=== PATIENT | male | born 1955 | race Caucasian/White ===

== ENCOUNTER 2021-10-30 07:00 | Outpatient (CLI) | payer MEDICARE, OTHER, SELFPAY ==
--- NOTE | ~2021-10-30 | NM_ITS ---
EXAMINATION: NM bone scan whole body DATE: 10/30/2021 12:24 INDICATION: Prostate cancer TECHNIQUE: 27.2 mCi Tc-99m HDP was administered intravenously. Delayed whole-body scintigrams were o btained. COMPARISON: 07/27/[address] dated 10/30/2021 FINDINGS: Typical pattern of mild joint centered uptake at the bilateral acromioclavicular and sternoclavicular joints, the sternomanubrial articulation, bilateral knees risks and right foot. There is also a corina lar pattern of mild uptake associated with costochondral cartilage. No other suspicious foci of abnor mal bone uptake to suggest metastatic disease. Mild uptake at the right side of L1-L2 with correspond ing Modic type III degenerative endplate changes on CT. IMPRESSION: 1. No findings to suggest metastatic disease. Reviewed, dictated and finalized at location A.
--- NOTE | ~2021-10-30 | CT_ITS ---
EXAMINATION: CT abdomen pelvis w con DATE: 10/30/2021 08:10 INDICATION: Prostate cancer TECHNIQUE: Computed tomography (CT) of the abdomen and pelvis was performed with 100 CC Omnipaque 300 intravenous contrast. Automated exposure control and iterative reconstruction technique were employe d. Exam dose: 1420.52 mGy-cm total exam DLP. COMPARISON: July 27, 2012 CT abdomen pelvis FINDINGS: The lung bases are clear. Normal heart size. No pericardial or pleural effusion. Diffuse hepatic steatosis. No hepatic, splenic, pancreatic, and adrenal space-occupying mass lesion. 9 Millimeters right renal cyst. No urinary tract calculus or hydroureteronephrosis. Normal caliber and atherosclerotic calcification of the abdominal aorta. No intraperitoneal or retrop eritoneal or pelvic mass lesion or adenopathy or ascites. Scattered left and right colonic diverticula; no CT evidence of diverticulitis. No bowel obstruction, bowel wall thickening, pneumatosis or intraperitoneal free air. Normal appendix. Status post prostatectomy. The urinary bladder is unremarkable. Bilateral vas deferens calcifications, which is usually associated with diabetes. Degenerative changes of the spine including prominent degenerative spurring of the thoracic spine and severe degenerative disc disease at L1-2 and L2-3. Bilateral hip osteoarthritis. Small fat-containing umbilical hernia. IMPRESSION: Status post prostatectomy for prostate cancer; no abdominal or pelvic or skeletal metast atic disease or lymphadenopathy is detected Hepatic steatosis Right renal cyst Diverticulosis of colon; no evidence of diverticulitis Bilateral vas deferens calcifications, usually associated with diabetes Reviewed, dictated and finalized at Location A. Reviewed, dictated and finalized at location B. IMPRESSION: Status post prostatectomy for prostate cancer; no abdominal or pel rashel or skeletal metastatic disease or lymphadenopathy is detected Hepatic steatosis Right renal cyst Diverticulosis of colon; no evidence of diverticulitis Bilateral vas deferens calcifications, usually associated with diabetes
[2021-10-30 07:58] LABS: Estimated Glomerular Filt Rate 43
== END 2021-10-30 07:01 | disposition home or self-care (01) ==
PROVIDERS: Visit Provider Nurse Practitioner Adult Health
DX: C61 Malignant neoplasm of prostate (principal); K76.0 Fatty (change of) liver, not elsewhere classified; N28.1 Cyst of kidney, acquired; K57.30 Diverticulosis of large intestine without perforation or abscess without bleeding
CPT/HCPCS: 74177; 78306; A9561; Q9967

== ENCOUNTER 2021-11-28 13:30 | Outpatient (CLI) | payer MEDICARE, OTHER, SELFPAY ==
--- NOTE | ~2021-11-28 | PE_ITS ---
EXAMINATION: PET_PETPSMAST_PT DATE: 11/28/2021 16:06 INDICATION: Prostate cancer TECHNIQUE: 8.838 mCi of pipflufolastat F-18 (18-F-DCFPyL) was administered i.v. Low dose computed la ography (CT) images were acquired from the base of the brain to the proximal thighs for attenuation c orrection and anatomic localization. Positron emission tomography (PET) images were acquired in the s glynn distribution beginning 72 minutes after injection. The dose-length product (DLP) was 75.50 mGy-cm . Incorrect technique was selected for the attenuation correction CT which renders that portion of th e examination essentially uninterpretable. COMPARISON: CT, 10/30/2021 FINDINGS: Head/neck: No abnormal FDG uptake is identified. There is symmetric uptake in the lacrimal gland and parotid glands. Chest: No abnormal FDG uptake is identified. There is mild dependent atelectasis. The heart size is n ormal. No pathologically enlarged thoracic lymph nodes are identified. Abdomen/pelvis/proximal thighs: Physiologic FDG activity is present in the bowel and urinary tract. N o abnormal FDG uptake is identified. The liver, spleen, pancreas, gallbladder, adrenal glands, and ki dneys are normal. No pathologically enlarged abdominal or pelvic lymph nodes are identified. There is no free intraperitoneal gas or evidence of bowel obstruction. Musculoskeletal: No abnormal FDG uptake is identified. There is moderate lumbar spondylosis. 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 IMPRESSION: 1. No evidence of recurrent or metastatic disease. Reviewed, dictated and finalized at location A.
== END 2021-11-28 13:31 | disposition home or self-care (01) ==
PROVIDERS: Visit Provider Urology
DX: C61 Malignant neoplasm of prostate (principal)
CPT/HCPCS: 78815; A9595

== ENCOUNTER 2024-11-08 00:28 | Day surgery (SDC) | payer MEDICARE, SELFPAY ==
[2024-11-01 09:42] VITALS: BMI 36.5
--- OUTSIDE RECORDS SUMMARY | 2024-11-08 00:31 | XMS_ITS | Encounter Summary ---
Author Name [facility] [place] [facility] [place] Address [address] [place] [address] Care Team Providers Care Threat Monitoring Analyst Name Role Phone SANGEETA SANDERS Primary Care Provider Unavailab le Insurance Providers: All historical and current Section Date Range: From patient's date of to the date document was created. This section includes the names of all active insurance providers for the patient. Insurance Provider Type of Coverage Plan Name Start of Policy Coverage End of Policy Coverage Group Number Member ID Insurance Provider's Telephone Number Policy Lyon's Name Patient's Relationship to Policy Lyon [employer] SENIOR SUPPLEMENT MEDICARE SUPPLEMEN DIVINE MED[employer] ARE SUPPL EMENT May 21, 2022 PLAN F [id number] UVALDO SANCHEZ PATIENT MEDICARE (WNR) MEDICARE (M) PART A Apr 21, 2019 PART A [id number] WILFRID SANCHEZ JR PATIENT MEDICARE (WNR) MEDICARE (M) PART B Apr 21, 2019 PART B [id number] WILFRID SANCHEZ JR PATIENT Selected Encounter This section includes the information on record at [place] for the Encounter. Date/Time Encounter Type Encounter Description Reason Provider Source November 07, 2024 09:13 AM POS AIRWAY PRESSURE CPAP SLEEP MEDICINE ICD-10-CM G47.33 Obstructive sleep apnea (adult) (pediatric) HEATHER CHAVES MD E Encounter Template Text not used by [place] Assessments - Encounter Diagnoses This section includes the primary and secondary diagnoses documented for the Encounter. Date/Time Primary/Secondary Diagnosis Diagnosis Name Provider Source November 07, 2024 09:14 AM PRIMARY Obstructive sleep apnea (adult) (pediatric) THIERRY RICHARDSON [facility] Plan of Treatment: Future Appointments (+ 6 months) and Future Tests (+/- 45 days) The Plan of Treatment section includes future care activities for the patient from all [place] treatmentfacilities. This section includes future appointments and future orders which are active, pending or scheduled. Future Appointments This section includes appointments that were scheduled to occur 6 months from the date of the Encounter, up to a maximum of 20 appointments. The data comes from all [place] treatment facilities. Appointment Date/Time Appointment Type Appointme nt Facility Name Nov 21, 2024 01:30 PM AMBULATORY - SURGERY [facility] Mar 02, 2025 03:30 PM AMBULATORY - MEDICINE [facility] Social History: Smoking Status (Most current) and Tobacco Use (All prior to encounter date) This section includes the most current, and the historical, smoking and tobacco- related health factors from the [place] facility where the Encounter took place. Current Smoking Status This section includes the most current smoking, or tobacco-related health factor, from the [place] facility where the Encounter took place. Date/Time Current Smoking Status Comment Facil ity Oct 04, 2023 01:49 PM VA-TOBACCO NEVER USED [facility] Encounter Notes: All associated encounter notes This section contains the clinical notes associated to the Encounter. Date/Time Encounter Note(s) Provider Source November 07, 2024 09:13 AM SLEEP MEDICINE NOT E: LOCAL TITLE: POSITIVE AIRWAY PRESSURE NOTE [facility] STANDARD TITLE: SLEEP MEDICINE NOTE DATE OF NOTE: NOVEMBER 07, 2024@09:13 ENTRY DATE: NOVEMBER 07, 2024@09:13:48 AUTHOR: THIERRY RICHARDSON EXP COSIGNER: URGENCY: STATUS: COMPLETED Moderate MACK from [facility] sleep report. A11 and supplies ordered through [employer] and will be shipped to patient's home. [id number]. Cleaning and replacement sheet will be mailed out as well. Link Maxine/Lalo Miller /joana/ THIERRY RICHARDSON Respiratory Therapist Signed: 11/07/2024 09:14 THIERRY RICHARDSON [facility]
--- OUTSIDE RECORDS SUMMARY | 2024-11-08 00:31 | XMS_ITS | Encounter Summary ---
Author Name [facility] [place] [place] [facility] [place] Address [address] [place] [address] Care Team Providers Care Defense Analyst Name Role Phone SANGEETA SANDERS Primary [...] SUPPL EMENT May 21, 2022 PLAN F [id number] UVALDO SANCHEZ PATIENT MEDICARE (WNR) MEDICARE (M) PART A Apr 21, 2019 PART A [id number] WILFRID SANCHEZ JR PATIENT MEDICARE (WNR) MEDICARE (M) PART B Apr 21, 2019 PART B [id number] WILFRID SANCHEZ JR PATIENT Selected Encounter This section includes the information on record at [place] for the Encounter. Date/Time Encounter Type Encounter Description Reason Pro vider Source Sep 22, 2024 02:11 PM Outpatient Encounter GENERAL INTERNAL MEDICINE IHE Encounter Template Text not used by [place] Plan of Treatment: Future Appointments (+ 6 months) and Future Tests (+/- 45 days) The Plan of Treatment section includes future care activities for the patient from all [place] treatmentfacilities. This section includes future appointments and future orders which are active, pending or scheduled. Future Appointments This section includes appointments that were scheduled to occur 6 months from the date of the Encounter, up to a maximum of 20 appointments. The data comes from all [place] treatment facilities. Appointment Date/Time Appointment Type Appointme nt Facility Name Oct 16, 2024 03:00 PM [facility] Nov 21, 2024 01:30 PM AMBULATORY - SURGERY [facility] Mar 02, 2025 03:30 PM AMBULATORY - MEDICINE [facility] Social History: Smoking Status (Most current) and Tobacco Use (All prior to encounter date) This section includes the most current, and the historical, smoking and tobacco- related health factors from the [place] facility where the Encounter took place. Current Smoking Status This section includes the most current smoking, or tobacco-related health factor, from the [place] facility where the Encounter took place. Date/Time Current Smoking Status Comment Facil rickyy Oct 04, 2023 01:49 PM VA-TOBACCO NEVER USED [facility] Encounter Notes: All associated encounter notes This section contains the clinical notes associated to the Encounter. Date/Time Encounter Note(s) Provider Source Jul 10, 2024 02:11 PM SCANNED NOTE: LOCAL TITLE: NON VA CARE ST STANDARD TITLE: SCANNED NOTE DATE OF NOTE: JUL 10, 2024@14:11 ENTRY DATE: SEP 22, 2024@14:12:04 AUTHOR: CANDELARIA GOMEZ EXP COSIGNER: URGENCY: STATUS: COMPLETED Attached to this note is a scanned copy of [place] medical record consisting of the following document(s): Progress Note DOS: 07/10/24 From: PROGRESS NOTE - MEDICAL RECORDS To view the scanned document: 1) You must be logged into [facility] 2) Click on Toolbar 3) Sign on to Praneeth Lee /joana/ CANDELARIA GOMEZ Registered Nurse Signed: 09/22/2024 14:[address] [facility]
--- OUTSIDE RECORDS SUMMARY | 2024-11-08 00:31 | XMS_ITS | Encounter Summary ---
Author Name [facility] [place] [facility] [place] [facility] [place] Address [address] [place] [address] Care Team Providers Care Auditor Supervisor Name Role Phone SANGEETA SANDERS Primary Care [...] SUPPL EMENT May 21, 2022 PLAN F [id number] UVALDO SANCHEZ PATIENT MEDICARE (WNR) MEDICARE (M) PART A Apr 21, 2019 PART A [id number] WILFRID SANCHEZ JR PATIENT MEDICARE (WNR) MEDICARE (M) PART B Apr 21, 2019 PART B [id number] WILFRID SANCHEZ JR PATIENT Selected Encounter This section includes the information on record at [place] for the Encounter. Date/Time Encounter Type Encounter Description Reason Pro vider Source November 07, 2024 07:19 AM Outpatient Encounter COMMUNITY CARE CONSULT IHE Encounter Template Text not used by [facility] Plan of Treatment: Future Appointments (+ 6 months) and Future Tests (+/- 45 days) The Plan of Treatment section includes future care activities for the patient from all [place] treatmentfacilities. This section includes future appointments and future orders which are active, pending or scheduled. Future Appointments This section includes appointments that were scheduled to occur 6 months from the date of the Encounter, up to a maximum of 20 appointments. The data comes from all [place] treatment facilities. Appointment Date/Time Appointment Type Appointme nt Facility Name Nov 21, 2024 01:30 PM AMBULATORY - SURGERY [facility] Mar 02, 2025 03:30 PM AMBULATORY - MEDICINE [facility] Social History: Smoking Status (Most current) and Tobacco Use (All prior to encounter date) This section includes the most current, and the historical, smoking and tobacco- related health factors from the [place] facility where the Encounter took place. Current Smoking Status This section includes the most current smoking, or tobacco-related health factor, from the [place] facility where the Encounter took place. Date/Time Current Smoking Status Comment Facil ity Oct 04, 2023 01:49 PM VA-TOBACCO NEVER USED [facility] Encounter Notes: All associated encounter notes This section contains the clinical notes associated to the Encounter. Date/Time Encounter Note(s) Provider Source November 07, 2024 07:19 AM NONVA NOTE: LOCAL TITLE: [facility]-REQUEST FOR SERVICE NOTE [facility] STANDARD TITLE: NONVA NOTE DATE OF NOTE: NOVEMBER 07, 2024@07:19 ENTRY DATE: NOVEMBER 07, 2024@07:19:53 AUTHOR: MAYKEL CRUZ COSIGNER: URGENCY: STATUS: COMPLETED Request for Services (RFS) documentation has been sent for scanning to [facility] Community Care Consult: [facility] SLEEP STUDY Consult No: [id number] Date sent to scanning: October A Request for Service (RFS) form [id number] has been received which includes the following: Care Requested: CPAP Order: APAP 5cm to 20cm ResMed Airsense 10 or 11 Heated Hose Mask fitting, All Supplies, Modem only ICD-10 Dx code: G47.30 Date [facility] received request: October Date service required: October Requesting Community Provider Information: Name of Ordering Provider: [facility] [address] [place] [id number] Ref# [id number] /joana/ MAYKEL CRUZ REGISTERED NURSE Signed: 11/07/2024 07:30 Receipt Acknowledged By: 11/07/2024 11:49 /es/ SANGEETA SANDERS Staff Physician 11/07/2024 09:11 /es/ THIERRY RICHARDSON Respiratory Therapist MAYKEL CRUZ [facility]
--- OUTSIDE RECORDS SUMMARY | 2024-11-08 00:31 | XMS_ITS ---
Author Name [facility] Address [address] [place] [address] Care Team Providers Care Tower Erector Helper Name Role Phone ELEONORA SANDERS Primary Care Provider Unavailab le Insurance [...] SUPPL EMENT May 21, 2022 PLAN F [id number] UVALDO SANCHEZ PATIENT MEDICARE (WNR) MEDICARE (M) PART A Apr 21, 2019 PART A [id number] WILFRID SANCHEZ JR PATIENT MEDICARE (WNR) MEDICARE (M) PART B Apr 21, 2019 PART B [id number] WILFRID SANCHEZ JR PATIENT Selected Encounter This section includes the information on record at [place] for the Encounter. Date/Time Encounter Type Encounter Description Reason Provider Source Sep 01, 2024 02:30 PM OFFICE O/P EST MOD 30 MIN PRIMARY CARE/MEDICINE ICD-10-CM E11.9 Type 2 diabetes mellitus without complications GABRIELE SANDERS Encounter Template Text not used by [facility] Assessments - Encounter Diagnoses This section includes the primary and secondary diagnoses documented for the Encounter. Date/Time Primary/Secondary Diagnosis Diagnosis Name Provider Source Sep 01, 2024 02:59 PM PRIMARY Type 2 diabetes mellitus without complications KESHA SANDERS Ree FLY [facility] Sep 01, 2024 02:59 PM SECONDARY Carcinoma in situ of prostate TOMMYKESHA E [facility] Sep 01, 2024 02:59 PM SECONDARY Cervicalgia TOMMYKESHA E Ree [facility] Sep 01, 2024 02:59 PM SECONDARY Dysphagia, unspecified TOMMYKESHA José Miguel [facility] Sep 01, 2024 02:59 PM SECONDARY Essential (primary) hypertension TOMMYKESHA E Ree [facility] Sep 01, 2024 02:59 PM SECONDARY Hyperlipidemia, unspecified TOMMYKESHA E [facility] Sep 01, 2024 02:59 PM SECONDARY Hypothyroidism, unspecified TOMMYKESHA E [facility] Sep 01, 2024 02:59 PM SECONDARY Obstructive sleep apnea (adult) (pediatric) KAMARIBERTINKESHA E [facility] Plan of Treatment: Future Appointments (+ 6 months) and Future Tests (+/- 45 days) The Plan of Treatment section includes future care activities for the patient from all [place] treatmentfacilities. This section includes future appointments and future orders which are active, pending or scheduled. Future Appointments This section includes appointments that were scheduled to occur 6 months from the date of the Encounter, up to a maximum of 20 appointments. The data comes from all [place] treatment facilities. Appointment Date/Time Appointment Type Appointme nt Facility Name Oct 16, 2024 03:00 PM AMBULATORY - MEDICINE [facility] Nov 21, 2024 01:30 PM AMBULATORY - SURGERY [facility] Mar 02, 2025 03:30 PM AMBULATORY - MEDICINE [facility] Active, Pending, and Scheduled Orders This section includes a listing of several types of active, pending, and scheduled orders, including clinic medications orders, diagnostic test orders, procedure orders and consult orders; where the start date of the order is 45 days before the date of the Encounter or 45 days after the date of theEncounter. The data comes from all [place] treatment facilities. Test Date/Time Test Type Test Details Facility Name Jul 19, 2024 09:52 AM Consult Order [facility] SLEEP STUDY Cons Ginger [employer] [facility] Vital Signs: All taken on the encounter date This section contains inpatient and outpatient Vital Signs collected on the date of the Encounter. Date/Time Temperature Pulse Blood Pressure Respiratory Rate SP02 Pain Height Weight Body Mass Index Source Sep 01, 2024 02:13 PM 144/72 [facility] Sep 01, 2024 02:06 PM 97.9 78 152/91 18 96 7 71 265.4 37 [facility] Encounter Notes: All associated encounter notes This section contains the clinical notes associated to the Encounter. Date/Time Encounter Note(s) Provider Source October 26, 2024 12:56 PM ACCOUNTING OF DISC LOSURES NOTE: LOCAL TITLE: STATE PRESCRIPTION DRUG MONITORING PROGRAM STANDARD TITLE: ACCOUNTING OF DISCLOSURES NOTE DATE OF NOTE: OCTOBER 26, 2024@12:56:16 ENTRY DATE: OCTOBER 26, 2024@12:56:16 AUTHOR: ELEONORA SANDERS EXP COSIGNER: URGENCY: STATUS: COMPLETED This PDMP query was submitted by Eleonora Sanders. The clinical justification for this PDMP query is to review controlled substances prescribed outside of the [place], and any additional information that may become available, as an important component of standard clinical care, and in accordance with [facility] policy. Patient information was shared with the PDMP [employer]. Prescription(s) filled outside the [facility] in the last 90 days are noted. However, they do not raise significant safety concerns and do not influence the treatment plan at this time. /joana/ ELEONORA SANDERS Staff Physician Signed: 10/26/2024 12:58 ELEONORA SANDERS [facility] Sep 01, 2024 02:16 PM PRIMARY CARE NOTE: LOCAL TITLE: PRIMARY CARE PROVIDER ESTABLISHED VISIT [facility] STANDARD TITLE: PRIMARY CARE NOTE DATE OF NOTE: SEP 01, 2024@14:16 ENTRY DATE: SEP 01, 2024@14:16:34 AUTHOR: ELEONORA SANDERS EXP COSIGNER: URGENCY: STATUS: COMPLETED Patient is 69 and WHITE Self Identified Gender - Man Reason for visit:Scheduled follow-up Chief Complaint: 69yo male here for f/u visit, last visit Feb 2024. Non VA Providers: PCP: Dr. Alvin Avendano, [facility] Urology/Onc: Dr. Hartley [facility] GI: Colonoscopy scheduled October 2024 History of Present Illness: Hx of DM2, last A1c at 6.0%. Currently on sitagliptin 50mg daily, changed from tradjenta previously. --still needs to schedule an eye appt. --had repeat A1c on 07/10/2024 through nonVA PCP, at 6.2%. Reports he has been having issues with neck pain. He has brought in discs of his prior imaging of her cervical spine. He reports he has an upcoming repeat MRI scheduled for 09/06/2024. He has a hx of MACK, now has a home sleep study scheduled for September 2024. --has tried CPAP and did not tolerate this well. Reports he has had trouble swallowing for the last 6 months, worse when trying to use medicine and certain foods. --denies issues with acid reflux or heartburn. --feels like food gets stuck in his throat and he sometimes has to bring it back up. No prior issues with this. Problem List: 1) Type 2 diabetes mellitus 2) Essential hypertension 3) Hyperlipidemia 4) Carcinoma in situ of prostate 5) Sleep apnea 6) Gout 7) Hypothyroidism 8) Exposure to Potentially Hazardous Substance ([facility] [id number]) Social History: NICOTINE: Nicotine User: never ILLICIT DRUGS: none ETOH: 2-3 times/month 2-3 beers per episode MARITAL/DOMESTIC STATUS: Medication Review: The essential med list for review which includes the patient's active VA prescriptions and if applicable, remote VA prescriptions, non-VA prescriptions, and discontinued VA prescriptions within the last 90 days and known allergies including local and remote allergies have been reviewed. Allergies:Patient has answered NKA Active and Recently Outpatient Medications (excluding Supplies): Active Outpatient Medications Status 1) ACCU-CHEK GUIDE (GLUCOSE) TEST STRIP USE 1 STRIP FOR BLOOD ACTIVE TEST DIRECTED *HYPOGLYCEMIA, 100 STRIPS PER YEAR* Jan 2) ALLOPURINOL 300MG TAB TAKE ONE TABLET BY MOUTH ONCE A DAY ACTIVE TAKE WITH PLENTY OF WATER. Indication: FOR GOUT 3) DICLOFENAC NA 1% TOP GEL APPLY 4 GM TO AFFECTED AREA(S) FOUR ACTIVE TIMES A DAY NEEDED DO NOT EXCEED MORE THAN 16 GRAMS DAILY TO ANY LOWER EXTREMITY JOINT. NOT MORE THAN 8 GRAMS DAILY TO ANY UPPER EXTREMITY JOINT. MAX 32GM/DAY OVER ALL JOINTS. (MEASURE DOSE WITH RULER ATTACHED INSIDE BOX) Indication: FOR OSTEOARTHRITIS 4) ERGOCALCIF 1,250MCG (D2-50,000UNIT) CAP TAKE ONE CAPSULE BY ACTIVE MOUTH EVERY WEEK HIGH DOSE VITAMIN D Indication: FOR VITAMIN D DEFICIENCY 5) FENOFIBRATE 145MG TAB TAKE ONE TABLET BY MOUTH ONCE A DAY - ACTIVE (S) TAKE WITH FOOD Indication: FOR HIGH TRIGLYCERIDES 6) GABAPENTIN 100MG CAP TAKE ONE CAPSULE BY MOUTH AT BEDTIME ACTIVE Indication: FOR NERVE PAIN 7) LEVOTHYROXINE NA 125MCG TAB TAKE ONE TABLET BY MOUTH EVERY ACTIVE MORNING BEFORE A MEAL TAKE 30 MINUTES BEFORE FOOD. TAKE SEPARATELY FROM ALL OTHER MEDICATIONS. NOTE DOSE DECREASE Indication: FOR HYPOTHYROIDISM 8) LISINOPRIL 10MG TAB TAKE ONE TABLET BY MOUTH ONCE A DAY ACTIVE Indication: FOR HIGH BLOOD PRESSURE 9) SIMVASTATIN 40MG TAB TAKE ONE TABLET BY MOUTH EVERY EVENING ACTIVE Indication: FOR HIGH CHOLESTEROL 10) SITAGLIPTIN (EQV-ZITUVIO) 50MG TAB TAKE ONE TABLET BY MOUTH ACTIVE (S) ONCE A DAY REPLACES ALOGLIPTIN Indication: FOR DIABETES 11) ZOLPIDEM TARTRATE 10MG TAB TAKE ONE TABLET BY MOUTH AT ACTIVE BEDTIME NEEDED (TAKE IMMEDIATELY BEFORE BEDTIME DUE TO RAPID ONSET OF ACTION) Indication: FOR INSOMNIA Active Non-VA Medications Status 1) Non-VA ALLOPURINOL 300MG TAB 300MG BY MOUTH ONCE A DAY ACTIVE Indication: FOR GOUT 2) Non-VA ALPRAZOLAM 0.5MG TAB 0.5MG BY MOUTH THREE TIMES A DAY ACTIVE NEEDED Indication: FOR ANXIETY 3) Non-VA CHOLECALCIF 1,250MCG (D3-50,000UNIT) CAP 1250MCG BY ACTIVE MOUTH EVERY WEEK Indication: FOR VITAMIN D DEFICIENCY 4) Non-VA LEVOTHYROXINE NA 137MCG TAB 137MCG BY MOUTH EVERY ACTIVE MORNING BEFORE A MEAL Indication: FOR HYPOTHYROIDISM 5) Non-VA LISINOPRIL 20MG TAB 10MG BY MOUTH ONCE A DAY ACTIVE Indication: FOR HIGH BLOOD PRESSURE 6) Non-VA SIMVASTATIN 80MG TAB 40MG BY MOUTH EVERY EVENING ACTIVE Indication: FOR HIGH CHOLESTEROL 7) Non-VA ZOLPIDEM TARTRATE 10MG TAB 10MG BY MOUTH AT BEDTIME ACTIVE NEEDED Indication: FOR INSOMNIA 18 Total Medications Physical Exam VITALS (most recent, as listed in the electronic record): B/P: 144/72 (09/01/2024 14:13) Pulse: 78 (09/01/2024 14:06) Temperature: 97.9 F [36.6 C] (09/01/2024 14:06) Weight: 265.4 lb [120.38 kg] (09/01/2024 14:06) Height: 71 in [180.3 cm] (09/01/2024 14:06) BMI: 37.1 Pain: 7 (09/01/2024 14:06) (0-10 scale) General: WD, WN in NAD, pleasant affect Skin: no lesions or rashes noted. Neck: Supple, no cervical JANUSZ. Lungs: CTA bilat, no W/R/R Heart: RRR, nl S1/S2, no murmurs. Abdomen: nondistended. Data Review: HGA1C 6.0 % 02/25/2024 14:07 Lipid Panel: TRIGLYCERIDE 167 H mg/dL 10/05/2023 13:48 CHOLESTEROL 184 mg/dL 10/05/2023 13:48 HDL(New) 48 mg/dL 10/05/2023 13:48 CALCULATED LDL 103 mg/dL 10/05/2023 13:48 CMP: SODIUM 137 mEq/L 02/25/2024 14:07 POTASSIUM 4.5 mEq/L 02/25/2024 14:07 CHLORIDE 104 mEq/L 02/25/2024 14:07 UREA NITROGEN 23.4 mg/dL 02/25/2024 14:07 CREATININE 1.48 H mg/dL 02/25/2024 14:07 CALCIUM 10.4 mg/dL 02/25/2024 14:07 PROTEIN 7.9 g/dL 10/05/2023 13:48 ALBUMIN 4.7 g/dL 02/25/2024 14:07 ALKALINE PHOSPHATASE 56 U/L 10/05/2023 13:48 ALT/SGPT 26 U/L 10/05/2023 13:48 AST/SGOT 29 U/L 10/05/2023 13:48 TOTAL BILIRUBIN 0.5 mg/dL 10/05/2023 13:48 CARBON DIOXIDE 22 mEq/L 02/25/2024 14:07 GLUCOSE 136 H mg/dL 02/25/2024 14:07 EGFR (CKD-EPI 2020) 50.9 02/25/2024 14:07 CBC: No CBC EO data found PSA: No PSA EO data found TSH: TSH 0.566 uIU/mL 10/05/2023 13:48 UA: No URINALYSIS EO data found Vitamin D: VITAMIN D, 25-HYDROXY 37.5 ng/mL 10/05/2023 13:48 Micral/Creat Profile: CREATuF: 120.9 (10/05/23 13:48) M/CREAT: 42 (10/05/23 13:48) MICRAL: 51.2 (10/05/23 13:48) Result: Follow-up Action: Patient's Hemoglobin A1c from a non-[place] lab. Date: July 10, 2024 Result 6.2 Labs done at nonVA PCP on 07/10/2024, not available in [facility]. Assessment/Plan: 1) DM2: controlled, last A1c at nonVA PCP at 6.2% in Jun 2024. --cont sitagliptin 50mg daily --had urine microalb/cr done Jun 2024, result unknown. Will see if can get lab records. --needing to schedule visit for eye exam, number given again. --foot exam due next visit. --on ACEI and statin. 2) HTN: uncontrolled in clinic, but reports home readings are in the 120's/80. --was 120/70 at nonVA PCP visit in Jun. --cont lisinopril 10mg daily. --cont to monitor at home. -- Recommend 150min/week of moderate exercise, along with 2-3 days of strength training. Recommend diet of several veggies/fruits, whole grains, and lean protein. Recommend avoidance of sugary beverages and heavily processed foods. 3) HLD: lab done by nonVA PCP in Jun 2024, will request records. --cont simvastatin and fenofibrate. --lifestyle management as above. 4) Cervicalgia: had xrays at nonVA PCP showing degenerative changes and has MRI pending. --was also referred to PT. --cont care with nonVA PCP. 5) Dysphagia: discussed referral to GI for new onset difficulty swallowing w/o GERD/heartburn vs trial of PPI. --at this time he declines, will f/u as needed. 6) Hx of prostate CA/incontinence: seeing nonVA Urology. --has been advised to do pelvic floor therapy for incontinence, has CC consult in placed. 7) MACK: intolerant of CPAP; has home sleep study pending to eval for other tx options. 8) Hypothyroidism: recent TSH out of range, has changed med dose. --reports has repeat lab pending for September 2024 with nonVA PCP. RTC: 6 months Time spent on date of visit including face to face time, data review, and chartin min CLINICAL REMINDERS COMPLETED VVC DIGITAL Rest Devices CAPABILITY REMINDER: Patient is not interested in VVC at this time. 'S RIGHT TO DECLINE STATEMENT [place] understands they have the right to decline the use of Telehealth Technology at any time without adverse affects on their continued access to healthcare. Follow-Up Pos PTSD/Depression - M,P,PH,PS,R,S,T: I have reviewed the results of the Mental Health screens and have evaluated the patient. Based on the evaluation, the following disposition plan will be implemented: Patient declines further intervention or evaluation at this time. Contact information and instructions for accessing emergency services provided. HIV Screening (Routine): Patient has been offered HIV testing and has declined. I have explained that HIV testing is recommended for all adults, even if all risk factors are absent. Hepatitis C Testing - L,N,P,PH: Patient declines HCV lab test. HTN Assess for Elevated BP>=140/90 - N,P,PH: The patient's blood pressure is usually adequately controlled. No medication changes are indicated at this time. /joana/ ELEONORA SANDERS Staff Physician Signed: 09/01/2024 14:59 ELEONORA SANDERS [facility] Sep 01, 2024 02:08 PM NURSING NOTE: LOCAL TITLE: V15 PACT FACE TO FACE NOTE STL STANDARD TITLE: NURSING NOTE DATE OF NOTE: SEP 01, 2024@14:08 ENTRY DATE: SEP 01, 2024@14:08:16 AUTHOR: DELMY BALDERAS COSIGNER: URGENCY: STATUS: COMPLETED Provider Visit: Patient Identifiers : Full Name Date of Reason for visit: Established Follow-Up Mode of Arrival: Ambulatory Allergy Review: Patient has answered NKA Allergy list reviewed and remains current. Recent Vital Signs: Temperature: 97.9 F [36.6 C] (09/01/2024 14:06) Pulse: 78 (09/01/2024 14:06) Respiration: 18 (09/01/2024 14:06) B/P: 152/91 (09/01/2024 14:06) Pain: 7 (09/01/2024 14:06) Wt: 265.4 lb [120.38 kg] (09/01/2024 14:06) Ht: 71 in [180.3 cm] (09/01/2024 14:06) BMI: 37.1 POX: 96% (09/01/2024 14:06) Blood sugar glucometer reading: declined PERSONAL HEALTH INVENTORY Notes: No data available for PHI note titles PERSONAL HEALTH INVENTORY - MAP: No data available for PHI MAP What matters most to you in your life right now? -- 's Response: family Would you like to discuss any personal problem, family problem, alcohol use, drug use, or a mental or emotional illness? No Contact provided Primary Care phone number and encouraged to call if any questions or concerns. Review that after hours nurse line [phone] and emergency room are available 11/01 for patient use. Contact verbalized good understanding. PTSD Screening - V: PC-PTSD-5 A PTSD screening test (PC-PTSD-5) was positive (score=4). IN THE PAST MONTH, have you ever had any experience that was so frightening, horrible or traumatic. For example: A serious accident or fire a physical or sexual assault or abuse An earthquake or flood A war Seeing someone be killed or seriously injured Having a loved one through homicide or suicide 1. Have you ever experienced this kind of event? YES 2. Had nightmares about the event(s) or thought about the event(s) when you did not want to? YES 3. Tried hard not to think about the event(s) or went out of your way to avoid situations that reminded you of the event(s)? YES 4. Been constantly on guard, watchful, or easily startled? YES 5. [place] numb or detached from people, activities, or your surroundings? YES 6. [place] guilty or unable to stop blaming yourself or others for the event(s) or any problems the event(s) may have caused? NO Licensed Independent Provider notified of positive screen and need for follow-up. Name of provider notified: DR Sanders COVID-19 Immunization - L,N,P,PH,U: Refused Pfizer Monovalent COVID-19 vaccine Immunization: COVID-19 (PFIZER), MRNA, LNP-S, PF, BOB-SUCROSE, 30 MCG/0.3 ML (AGES 12+ YEARS) Refusal Reason: PATIENT DECISION Patient refuses all immunization(s) in the COVID-19 group Date Documented: 09/01/24 14:11 Herpes Zoster (Shingles) Vaccine - L,N,P,PH,U: The patient declines to receive the recommended dose of zoster (shingles) vaccine. Immunization: ZOSTER RECOMBINANT Refusal Reason: PATIENT DECISION Patient refuses all immunization(s) in the ZOSTER group Date Documented: 09/01/24 14:11 Pneumococcal Conjugate Vaccine (PCV15/PCV20/PCV21) - L,N,P,PH,U: Refuses PCV vaccine Immunization: PNEUMOCOCCAL CONJUGATE, UNSPECIFIED FORMULATION Refusal Reason: PATIENT DECISION Patient refuses all immunization(s) in the PneumoPCV group Date Documented: 09/01/24 14:12 /joana/ DELMY BALDERAS LPN LICENSED PRACTIAL NURSE Signed: 09/01/2024 14:14 [facility]
--- OUTSIDE RECORDS SUMMARY | 2024-11-08 00:31 | XMS_ITS | Continuity of Care Document ---
Author Name [facility] Organization [facility] Care Team Providers Care Felter Tennis Balls Name Role Phone [facility] Unavailable Unavailable Problems Combined list of problems from [facility] and [facility] facilities. It does not include entries that were removed or entered in error. 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 [id number]) Active Condition [facility] Gout Active Condition [facility] Hyperlipidemia Active Condition [facility] Hypothyroidism Active Condition [facility] Sleep apnea Active Condition [facility] Type 2 diabetes mellitus Active Condition [facility] Diagnosis: ICD-10-CM G47.33 Obstructive sleep apnea (adult) (pediatric) Active Diagnosis [facility] Diagnosis: ICD-10-CM E11.9 Type 2 diabetes mellitus without complications Active Diagnosis [facility] Diagnosis: ICD-10-CM E11.40 Type 2 diabetes mellitus with diabetic neuropathy, unsp Active Diagnosis [facility] Diagnosis: ICD-10-CM Z13.5 Encounter for screening for eye and ear disorders Active Diagnosis [facility] Diagnosis: ICD-10-CM Z55.9 Problems related to education and literacy, unspecified Active Diagnosis [facility] Medications Combined list of outpatient medications from [facility] and [facility] facilities.Medications provided include 1) outpatient medications from the last 15 months, and 2) patient-reported medications. Medication Details Route Status Patient Instructions Prescription Expires Prescription Number Last Dispense Date Ordering Provider Order Date Order Qty Source ALLOPURINOL 300MG TAB TAKE ONE TABLET BY MOUTH ONCE A DAY FOR GOUT TAKE WITH PLENTY OF WATER. ORAL ACTIVE 05/21/2025 [id number] 05/19/202 5 DEPAULO,S UZANNE 2023 90 [facility] ALOGLIPTIN 12.5MG TAB TAKE ONE TABLET BY MOUTH ONCE A DAY FOR DIABETES ORAL DISCONT INUED 10/06/2024 [id number] 4 DEPAULO,S UZANNE 2023 90 [facility] ALPRAZOLAM 0.5MG TAB TAKE ONE TABLET BY MOUTH THREE TIMES A DAY NEEDED ORAL ACTIVE DEPJAGUARLO,S UZANNE 2023 [facility] DICLOFENAC NA 1% GEL,TOP APPLY 4 GM TO AFFECTED AREA(S) FOUR TIMES A DAY NEEDED DO NOT EXCEED MORE THAN 16 GRAMS DAILY TO ANY LOWER EXTREMIT Y JOINT. NOT MORE THAN 8 GRAMS DAILY TO ANY UPPER EXTREMIT Y JOINT. MAX 32GM/DAY OVER ALL JOINTS. (MEASURE DOSE WITH RULER ATTACHED INSIDE BOX) TOPICA L ACTIVE 02/25/2025 [id number] 5 DEPAULO,S UZANNE 2023 200 [facility] ERGOCALCIFE ROL 1,250MCG (50,000UNIT ) CAP TAKE ONE CAPSULE BY MOUTH EVERY WEEK ORAL DISCONT INUED 08/18/2024 [id number] 4 DEPAULO,S UZANNE 2023 12 [facility] ERGOCALCIFE ROL 1,250MCG (50,000UNIT ) CAP TAKE ONE CAPSULE BY MOUTH EVERY WEEK HIGH DOSE VITAMIN D ORAL 10/30/2024 [id number] 5 DEPAULO,S UZANNE 2024 12 [facility] FENOFIBRATE 145MG TAB TAKE ONE TABLET BY MOUTH ONCE A DAY - TAKE WITH FOOD ORAL ACTIVE 05/07/2025 [id number] 5 DEPAULO,S UZANNE 2023 90 [facility] GABAPENTIN 100MG CAP TAKE ONE CAPSULE BY MOUTH AT BEDTIME FOR NERVE PAIN ORAL ACTIVE 08/02/2025 [id number] 5 DEPAULO,S UZANNE 2024 90 [facility] GABAPENTIN 100MG CAP TAKE ONE CAPSULE BY MOUTH AT BEDTIME FOR NERVE PAIN ORAL DISCONT INUED 10/21/2024 [id number] 4 DEPAULO,S UZANNE 2023 90 [facility] GABAPENTIN 300MG CAP TAKE ONE CAPSULE BY MOUTH AT BEDTIME FOR NERVE PAIN ORAL DISCONT INUED (EDIT) 10/06/2024 [id number] 4 DEPAULO,S UZANNE 2023 90 [facility] LEVOTHYROXI NE NA 125MCG TAB TAKE ONE TABLET BY MOUTH EVERY MORNING BEFORE A MEAL FOR HYPOTHYR OIDISM TAKE 30 MINUTES BEFORE FOOD. TAKE SEPARATE LY FROM ALL OTHER MEDICATI ONS. NOTE DOSE DECREASE ORAL ACTIVE 08/02/2025 [id number] 5 DEPAULO,S UZANNE 2024 90 [facility] LEVOTHYROXI NE NA 137MCG TAB TAKE ONE TABLET BY MOUTH EVERY MORNING BEFORE A MEAL FOR HYPOTHYR OIDISM TAKE 30 MINUTES BEFORE FOOD. TAKE SEPARATE LY FROM ALL OTHER MEDICATI ONS. ORAL DISCONT INUED (EDIT) 05/21/2025 [id number] 4 DEPJAGUARLO,S UZANNE 2023 90 [facility] LISINOPRIL 10MG TAB TAKE ONE TABLET BY MOUTH ONCE A DAY FOR HIGH BLOOD PRESSURE ORAL ACTIVE 05/21/2025 [id number] DEPJAGUARLO,S UZANNE 2023 90 [facility] SIMVASTATIN 40MG TAB TAKE ONE TABLET BY MOUTH EVERY EVENING FOR HIGH CHOLESTE ROL ORAL ACTIVE 05/21/2025 [id number] 5 DEPAULO,S UZANNE 2023 90 [facility] SITAGLIPTIN (EQV-ZITUVI O) 50MG TAB TAKE ONE TABLET BY MOUTH ONCE A DAY FOR DIABETES REPLA RASHID ALOGLIPT IN ORAL ACTIVE 08/02/2025 [id number] 5 DEPAULO,S UZAJC 2024 90 [facility] SITAGLIPTIN (EQV-ZITUVI O) 50MG TAB TAKE ONE TABLET BY MOUTH ONCE A DAY FOR DIABETES REPLA RASHID ALOGLIPT IN ORAL DISCONT INUED 10/06/2024 [id number] 5 Marlene SANDERS UZANNE 2023 90 [facility] LULI N ZOLPIDEM TARTRATE 10MG TAB TAKE ONE TABLET BY MOUTH AT BEDTIME NEEDED (TAKE IMMEDIAT CARRIE BEFORE BEDTIME DUE TO RAPID ONSET OF ACTION) ORAL ACTIVE 11/25/2024 [id number] 5 TOMMY ShaniceZAJC 2024 15 [facility] ZOLPIDEM TARTRATE 10MG TAB TAKE ONE TABLET BY MOUTH AT BEDTIME NEEDED FOR INSOMNIA (TAKE IMMEDIAT CARRIE BEFORE BEDTIME DUE TO RAPID ONSET OF ACTION) ORAL DISCONT INUED 11/20/2024 [id number] 5 [facility] 2023 30 [facility] Immunizations Combined list of available immunizations from the Department of Defense and Veterans Affairs facilities. Immunization Series Date Given Administered By Site Reaction Lot Number CVX Code Drug Trend Investigator Status Comments Source INFLUENZA, HIGH-DOSE, TRIVALENT, PF 2023 SHELLI RODRIGEZ LEFT DELTO ID [id number] 135 complet ed [facility] TDAP 2023 SHELLI RODRIGEZ RIGHT DELTO ID [id number] 115 complet ed [facility] ZOSTER RECOMBINANT 1 2023 SHELLI RODRIGEZ RIGHT DELTO ID [id number] 187 complet ed [facility] Results Combined list of recent chemistry, hematology and other laboratory results from [facility] of Defense and Veterans Affairs, ranging from 15 months to all on record, depending upon the facility. Order Name Results Value Reference Range Date Interpretation Specimen Comments Source HGA1C HEMOGLOBIN A1C/HEMOGLOB IN.TOTAL IN BLOOD 6.0 4.0 - 6.0 02/24 Specimen Type: BLOOD No comment entered. Ordering Provider: ISABEL SANDERS Report Released Date/Time: Feb 25, 2024 01:25 PM Reporting Lab: [facility] [address] [facility] [address] Performing Lab: [facility] [address] [facility] [address] [facility] RENAL PANEL CREATININE [MASS/VOLUME ] IN SERUM OR PLASMA 1.48 mg/dL 0.7 - 1.3 02/24 H Specimen Type: PLASMA Comment: No hemolysis noted. Ordering Provider: ISABEL SANDERS Report Released Date/Time: Feb 25, 2024 01:25 PM Reporting Lab: [facility] [address] [place] [phone] Performing Lab: [facility] [address] [place] [phone] [place] [address] RENAL PANEL UREA NITROGEN [MASS/VOLUME ] IN SERUM OR PLASMA 23.4 mg/dL 9.0 - 25.0 02/24 Specimen Type: PLASMA Comment: No hemolysis noted. Ordering Provider: ISABEL SANDERS Report Released Date/Time: Feb 25, 2024 01:25 PM Reporting Lab: [facility] [address] [facility] [address] Performing Lab: [facility] [address] [place] [phone] [place] [address] RENAL PANEL GLUCOSE [MASS/VOLUME ] IN SERUM OR PLASMA 136 mg/dL 72 - 99 02/24 H Specimen Type: PLASMA Comment: No hemolysis noted. Ordering Provider: ISABEL SANDERS Report Released Date/Time: Feb 25, 2024 01:25 PM Reporting Lab: [facility] [address] [place] [phone] Performing Lab: [facility] [address] [place] [phone] [place] [address] RENAL PANEL SODIUM [MOLES/VOLUM E] IN SERUM OR PLASMA 137 meq/L 136 - 145 02/24 Specimen Type: PLASMA Comment: No hemolysis noted. Ordering Provider: ISABEL SANDERS Report Released Date/Time: Feb 25, 2024 01:25 PM Reporting Lab: [facility] [address] [facility] [address] Performing Lab: [facility] [address] [facility] [address] [facility] RENAL PANEL POTASSIUM [MOLES/VOLUM E] IN SERUM OR PLASMA 4.5 meq/L 3.5 - 5 02/24 Specimen Type: PLASMA Comment: No hemolysis noted. Ordering Provider: ISABEL SANDERS Report Released Date/Time: Feb 25, 2024 01:25 PM Reporting Lab: [facility] [address] [facility] [address] Performing Lab: [facility] [address] [place] [phone] [place] [address] RENAL PANEL CHLORIDE [MOLES/VOLUM E] IN SERUM OR PLASMA 104 meq/L 98 - 107 02/24 Specimen Type: PLASMA Comment: No hemolysis noted. Ordering Provider: ISABEL SANDERS Report Released Date/Time: Feb 25, 2024 01:25 PM Reporting Lab: [facility] [address] [facility] [address] Performing Lab: [facility] [address] [place] [phone] [facility] RENAL PANEL CARBON DIOXIDE, TOTAL [MOLES/VOLUM E] IN SERUM OR PLASMA 22 meq/L 22 - 31 02/24 Specimen Type: PLASMA Comment: No hemolysis noted. Ordering Provider: ISABEL SANDERS Report Released Date/Time: Feb 25, 2024 01:25 PM Reporting Lab: [facility] [address] [facility] [address] Performing Lab: [facility] [address] [facility] [address] [facility] RENAL PANEL CALCIUM [MASS/VOLUME ] IN SERUM OR PLASMA 10.4 mg/dL 8.4 - 10.4 02/24 Specimen Type: PLASMA Comment: No hemolysis noted. Ordering Provider: ISABEL SANDERS Report Released Date/Time: Feb 25, 2024 01:25 PM Reporting Lab: [facility] [address] [facility] [address] Performing Lab: [facility] [address] [facility] [address] [facility] RENAL PANEL PHOSPHATE [MASS/VOLUME ] IN SERUM OR PLASMA 2.6 mg/dL 2.3 - 4.7 02/24 Specimen Type: PLASMA Comment: No hemolysis noted. Ordering Provider: ISABEL SANDERS Report Released Date/Time: Feb 25, 2024 01:25 PM Reporting Lab: [facility] [address] [place] [phone] Performing Lab: [facility] [address] [place] [phone] [facility] RENAL PANEL ALBUMIN [MASS/VOLUME ] IN SERUM OR PLASMA 4.7 g/dL 3.4 - 5 02/24 Specimen Type: PLASMA Comment: No hemolysis noted. Ordering Provider: ISABEL SANDERS Report Released Date/Time: Feb 25, 2024 01:25 PM Reporting Lab: [facility] [address] [place] [phone] Performing Lab: [facility] [address] [place] [phone] [facility] RENAL PANEL GLOMERULAR FILTRATION RATE/1.73 SQ M.PREDICTED [VOLUME RATE/AREA] IN SERUM, PLASMA OR BLOOD BY CREATININE-B ASED FORMULA (CKD-EPI 2020) 50.9 60 02/24 Specimen Type: PLASMA Comment: No hemolysis noted. Ordering Provider: ISABEL SANDERS Report Released Date/Time: Feb 25, 2024 01:25 PM Reporting Lab: [facility] [address] [facility] [address] Performing Lab: [facility] [address] [facility] [address] [facility] LIPID PANEL (STL) CHOLESTEROL [MASS/VOLUME ] IN SERUM OR PLASMA 184 mg/dL 0 - 200 10/04 Specimen Type: PLASMA Comment: K result may show a positive bias due to hemolysis. Specimen slightly hemolyzed. Ordering Provider: ISABEL SANDERS Report Released Date/Time: Oct 05, 2023 01:29 PM Reporting Lab: [facility] [address] [facility] [address] Performing Lab: [facility] [address] [facility] [address] [facility] LIPID PANEL (STL) TRIGLYCERIDE [MASS/VOLUME ] IN SERUM OR PLASMA 167 mg/dL 0 - 150 10/04 H Specimen Type: PLASMA Comment: K result may show a positive bias due to hemolysis. Specimen slightly hemolyzed. Ordering Provider: ISABEL SANDERS Report Released Date/Time: Oct 05, 2023 01:29 PM Reporting Lab: [facility] [address] [facility] [address] Performing Lab: [facility] [address] [facility] [address] [facility] LIPID PANEL (STL) CHOLESTEROL IN LDL [MASS/VOLUME ] IN SERUM OR PLASMA BY CALCULATION 103 mg/dL 10/04 Specimen Type: PLASMA Comment: K result may show a positive bias due to hemolysis. Specimen slightly hemolyzed. Ordering Provider: ISABEL SANDERS Report Released Date/Time: Oct 05, 2023 01:29 PM Reporting Lab: [facility] [address] [facility] [address] Performing Lab: [facility] [address] [facility] [address] [facility] LIPID PANEL (STL) CHOLESTEROL IN HDL [MASS/VOLUME ] IN SERUM OR PLASMA 48 mg/dL 40 10/04 Specimen Type: PLASMA Comment: K result may show a positive bias due to hemolysis. Specimen slightly hemolyzed. Ordering Provider: ISABEL SANDERS Report Released Date/Time: Oct 05, 2023 01:29 PM Reporting Lab: [facility] [address] [facility] [address] Performing Lab: [facility] [address] [address] [facility] COMPREHENSI VE METABOLIC PANEL CREATININE [MASS/VOLUME ] IN SERUM OR PLASMA 1.43 mg/dL 0.7 - 1.3 10/04 H Specimen Type: PLASMA Comment: K result may show a positive bias due to hemolysis. Specimen slightly hemolyzed. Ordering Provider: ISABEL SANDERS Report Released Date/Time: Oct 05, 2023 01:29 PM Reporting Lab: [facility] [address] [facility] [address] Performing Lab: [facility] [address] [facility] [address] [facility] COMPREHENSI VE METABOLIC PANEL UREA NITROGEN [MASS/VOLUME ] IN SERUM OR PLASMA 18.0 mg/dL 9.0 - 25.0 10/04 Specimen Type: PLASMA Comment: K result may show a positive bias due to hemolysis. Specimen slightly hemolyzed. Ordering Provider: ISABEL SANDERS Report Released Date/Time: Oct 05, 2023 01:29 PM Reporting Lab: [facility] [address] [facility] [address] Performing Lab: [facility] [address] [facility] [address] [facility] COMPREHENSI VE METABOLIC PANEL GLUCOSE [MASS/VOLUME ] IN SERUM OR PLASMA 117 mg/dL 72 - 99 10/04 H Specimen Type: PLASMA Comment: K result may show a positive bias due to hemolysis. Specimen slightly hemolyzed. Ordering Provider: ISABEL SANDERS Report Released Date/Time: Oct 05, 2023 01:29 PM Reporting Lab: [facility] [address] [facility] [address] Performing Lab: [facility] [address] [facility] [phone] [place] [address] COMPREHENSI VE METABOLIC PANEL SODIUM [MOLES/VOLUM E] IN SERUM OR PLASMA 137 meq/L 136 - 145 10/04 Specimen Type: PLASMA Comment: K result may show a positive bias due to hemolysis. Specimen slightly hemolyzed. Ordering Provider: ISABEL SANDERS Report Released Date/Time: Oct 05, 2023 01:29 PM Reporting Lab: [facility] [address] [facility] [address] Performing Lab: [facility] [address] [place] [phone] COMPREHENSI VE METABOLIC PANEL POTASSIUM [MOLES/VOLUM E] IN SERUM OR PLASMA 4.9 meq/L 3.5 - 5 10/04 Specimen Type: PLASMA Comment: K result may show a positive bias due to hemolysis. Specimen slightly hemolyzed. Ordering Provider: ISABEL SANDERS Report Released Date/Time: Oct 05, 2023 01:29 PM Reporting Lab: [facility] [address] [facility] [address] Performing Lab: [facility] [address] [place] [phone] [place] [address] COMPREHENSI VE METABOLIC PANEL CHLORIDE [MOLES/VOLUM E] IN SERUM OR PLASMA 104 meq/L 98 - 107 10/04 Specimen Type: PLASMA Comment: K result may show a positive bias due to hemolysis. Specimen slightly hemolyzed. Ordering Provider: ISABEL SANDERS Report Released Date/Time: Oct 05, 2023 01:29 PM Reporting Lab: [facility] [address] [facility] [address] Performing Lab: [facility] [address] [facility] [phone] [place] [address] COMPREHENSI VE METABOLIC PANEL CARBON DIOXIDE, TOTAL [MOLES/VOLUM E] IN SERUM OR PLASMA 24 meq/L 22 - 31 10/04 Specimen Type: PLASMA Comment: K result may show a positive bias due to hemolysis. Specimen slightly hemolyzed. Ordering Provider: ISABEL SANDERS Report Released Date/Time: Oct 05, 2023 01:29 PM Reporting Lab: [facility] [address] [facility] [address] Performing Lab: [facility] [address] [facility] [address] [facility] COMPREHENSI VE METABOLIC PANEL CALCIUM [MASS/VOLUME ] IN SERUM OR PLASMA 10.8 mg/dL 8.4 - 10.4 10/04 H Specimen Type: PLASMA Comment: K result may show a positive bias due to hemolysis. Specimen slightly hemolyzed. Ordering Provider: ISABEL SANDERS Report Released Date/Time: Oct 05, 2023 01:29 PM Reporting Lab: [facility] [address] [facility] [address] Performing Lab: [facility] [address] [place] [address] [phone] [place] [address] COMPREHENSI VE METABOLIC PANEL PROTEIN [MASS/VOLUME ] IN SERUM OR PLASMA 7.9 g/dL 6 - 8.6 10/04 Specimen Type: PLASMA Comment: K result may show a positive bias due to hemolysis. Specimen slightly hemolyzed. Ordering Provider: ISABEL SANDERS Report Released Date/Time: Oct 05, 2023 01:29 PM Reporting Lab: [facility] [address] [facility] [address] Performing Lab: [facility] [address] [facility] [address] [facility] COMPREHENSI VE METABOLIC PANEL ALBUMIN [MASS/VOLUME ] IN SERUM OR PLASMA 4.6 g/dL 3.4 - 5 10/04 Specimen Type: PLASMA Comment: K result may show a positive bias due to hemolysis. Specimen slightly hemolyzed. Ordering Provider: ISABEL SANDERS Report Released Date/Time: Oct 05, 2023 01:29 PM Reporting Lab: [facility] [address] [facility] [address] Performing Lab: [facility] [address] [place] [phone] [facility] COMPREHENSI VE METABOLIC PANEL BILIRUBIN.TO DIVINE [MASS/VOLUME ] IN SERUM OR PLASMA 0.5 mg/dL 0.2 - 1.2 10/04 Specimen Type: PLASMA Comment: K result may show a positive bias due to hemolysis. Specimen slightly hemolyzed. Ordering Provider: ISABEL SANDERS Report Released Date/Time: Oct 05, 2023 01:29 PM Reporting Lab: [facility] [address] [place] [phone] Performing Lab: [place] [phone] COMPREHENSI VE METABOLIC PANEL ALKALINE PHOSPHATASE [ENZYMATIC ACTIVITY/VOL UME] IN SERUM OR PLASMA 56 U/L 40 - 150 10/04 Specimen Type: PLASMA Comment: K result may show a positive bias due to hemolysis. Specimen slightly hemolyzed. Ordering Provider: ISABEL SANDESR Report Released Date/Time: Oct 05, 2023 01:29 PM Reporting Lab: [facility] [address] [place] [phone] Performing Lab: [address] [phone] [place] [address] COMPREHENSI VE METABOLIC PANEL ASPARTATE AMINOTRANSFE RASE [ENZYMATIC ACTIVITY/VOL UME] IN SERUM OR PLASMA 29 U/L 5 - 34 10/04 Specimen Type: PLASMA Comment: K result may show a positive bias due to hemolysis. Specimen slightly hemolyzed. Ordering Provider: ISABEL SANDERS Report Released Date/Time: Oct 05, 2023 01:29 PM Reporting Lab: [facility] [address] [place] [phone] Performing Lab: [address] [phone] [place] [address] COMPREHENSI VE METABOLIC PANEL ALANINE AMINOTRANSFE RASE [ENZYMATIC ACTIVITY/VOL UME] IN SERUM OR PLASMA 26 U/L 8 - 40 10/04 Specimen Type: PLASMA Comment: K result may show a positive bias due to hemolysis. Specimen slightly hemolyzed. Ordering Provider: ISABEL SANDERS Report Released Date/Time: Oct 05, 2023 01:29 PM Reporting Lab: [facility] [address] [address] Performing Lab: [facility] [address] [facility] [phone] [place] [address] COMPREHENSI VE METABOLIC PANEL GLOMERULAR FILTRATION RATE/1.73 SQ M.PREDICTED [VOLUME RATE/AREA] IN SERUM, PLASMA OR BLOOD BY CREATININE-B ASED FORMULA (CKD-EPI 2020) 53.0 60 10/04 Specimen Type: PLASMA Comment: K result may show a positive bias due to hemolysis. Specimen slightly hemolyzed. Ordering Provider: ISABEL SANDERS Report Released Date/Time: Oct 05, 2023 01:29 PM Reporting Lab: [facility] [address] [facility] [address] Performing Lab: [facility] [address] [facility] [phone] [place] [address] MICRAL/CREA T PROFILE (STL) ALBUMIN [MASS/VOLUME ] IN URINE 51.2 mg/L 10/04 Specimen Type: URINE No comment entered. Ordering Provider: ISABEL SANDERS Report Released Date/Time: Oct 05, 2023 01:29 PM Reporting Lab: [facility] [address] [facility] [address] Performing Lab: [facility] [address] [facility] [address] [facility] MICRAL/CREA T PROFILE (STL) ALBUMIN/CREA TININE [MASS RATIO] IN URINE 42 mg/g 0 - 29 10/04 H Specimen Type: URINE No comment entered. Ordering Provider: ISABEL SANDERS Report Released Date/Time: Oct 05, 2023 01:29 PM Reporting Lab: [facility] [address] [address] Performing Lab: [facility] [address] [facility] [address] [facility] MICRAL/CREA T PROFILE (STL) CREATININE [MASS/VOLUME ] IN URINE 120.9 mg/dL 63 - 166 10/04 Specimen Type: URINE No comment entered. Ordering Provider: ISABEL SANDERS Report Released Date/Time: Oct 05, 2023 01:29 PM Reporting Lab: [facility] [address] [place] [id number] Performing Lab: [id number] [place] [address] HGA1C HEMOGLOBIN A1C/HEMOGLOB IN.TOTAL IN BLOOD 6.0 4.0 - 6.0 10/04 Specimen Type: BLOOD No comment entered. Ordering Provider: ISABEL SANDERS Report Released Date/Time: Oct 05, 2023 01:29 PM Reporting Lab: [facility] [address] [facility] [id number] Performing Lab: [id number] [place] [address] TSH W/ REFLEX FT4 (STL) THYROTROPIN [UNITS/VOLUM E] IN SERUM OR PLASMA 0.566 u[IU]/ mL 0.47 - 5 10/04 Specimen Type: PLASMA No comment entered. Ordering Provider: ISABEL SANDERS Report Released Date/Time: Oct 05, 2023 01:29 PM Reporting Lab: [facility] [address] [facility] [address] Performing Lab: [id number] [place] [address] VITAMIN D, 25-HYDROXY 25-HYDROXYVI TAMIN D3 [MASS/VOLUME ] IN SERUM OR PLASMA 37.5 ng/mL 30 - 96 10/04 Specimen Type: SERUM No comment entered. Ordering Provider: ISABEL SANDERS Report Released Date/Time: Oct 05, 2023 01:29 PM Reporting Lab: [facility] [address] [facility] [address] Performing Lab: [facility] [address] [facility] [address] [facility] Vital Signs Combined list of inpatient and outpatient Vital Signs from Department of Defense and Veterans Affairs, ranging from 12 months to all on record, depending upon the facility. Vital Sign Value Date Comments Source SYSTOLIC BLOOD PRESSURE 152 09/01/2024 14:06:49 [facility] DIASTOLIC BLOOD PRESSURE 91 09/01/2024 14:06:49 [facility] PULSE OXIMETRY 96 09/01/2024 14:06:49 S Josh. [facility] WEIGHT 265.4 09/01/2024 14:06:49 [facility] BMI 37 kg/m2 09/01/2024 14:06:49 [facility] PAIN 7 09/01/2024 14:06:49 [facility] HEIGHT 71 09/01/2024 14:06:49 [facility] TEMPERATURE 97.9 09/01/2024 14:06:49 [facility] PULSE 78 09/01/2024 14:06:49 [facility] RESPIRATION 18 09/01/2024 14:06:49 [facility] SYSTOLIC BLOOD PRESSURE 174 02/25/2024 12:22:34 [facility] DIASTOLIC BLOOD PRESSURE 92 02/25/2024 12:22:34 [facility] PULSE OXIMETRY 97 02/25/2024 12:22:34 S Josh. [facility] WEIGHT 259.6 02/25/2024 12:22:34 [facility] BMI 36 kg/m2 02/25/2024 12:22:34 [facility] PAIN 7 02/25/2024 12:22:34 [facility] HEIGHT 71 02/25/2024 12:22:34 [facility] TEMPERATURE 98.1 02/25/2024 12:22:34 [facility] PULSE 74 02/25/2024 12:22:34 [facility] Clem [facility] RESPIRATION 18 02/25/2024 12:22:34 [facility] Encounters Combined list of: 1) Encounters from Department of [facility] Affairs facilities going backup to the last 18 months, not all VA inpatient encounters are included; 2) Encounters from the Department of [facility] facilities going backup to 280 months. Location Location Details Encounter Type Encounter Number Reason For Visit Attending Provider ADM Date DC Date Status Disposition Source [facility] Outpatient Encounter [id number] 06/21 [facility] Outpatient Encounter [id number] BERNIE RODRIGEZ 10/03 [facility] Outpatient Encounter [id number] 10/04 [facility] OFFICE O/P NEW MOD 45 MIN [id number] Diagnos is: ICD-10- CM E11.9 Type 2 diabete s mellitu s without complic ations BERNIE RODRIGEZ 10/04 [facility] Outpatient Encounter [id number] 10/18 [facility] Outpatient Encounter [id number] 10/20 [facility] Outpatient Encounter [id number] 12/02 [facility] Outpatient Encounter [id number] 02/08 [facility] Outpatient Encounter [id number] 02/08 [facility] Outpatient Encounter [id number] 02/13 [facility] Outpatient Encounter [id number] 02/17 [facility] OFFICE O/P EST MOD 30 MIN [id number] Diagnos is: ICD-10- CM E11.9 Type 2 diabete s mellitu s without complic ations ISABEL SANDERS 02/24 [facility] FUNDUS PHOTOGRAPH Y W/I&R [id number] Diagnos is: ICD-10- CM Z13.5 Encount er for screeni ng for eye and ear disorde rs [facility] 02/24 [facility] Outpatient Encounter [id number] Diagnos is: ICD-10- CM Z55.9 Problem s related to educati on and literac y, unspeci fied [facility] 02/24 [facility] IMG RTA DETC/MNTR DS PHY/QHP [id number] Diagnos is: ICD-10- CM Z13.5 Encount er for screeni ng for eye and ear disorde rs SUKHJINDER NASH 02/24 [facility] Outpatient Encounter [id number] 03/27 [facility] Outpatient Encounter [id number] 04/11 [facility] OFFICE O/P EST LOW 20 MIN [id number] Diagnos is: ICD-10- CM E11.40 Type 2 diabete s mellitu s with diabeti c neuropa thy, unsp [facility] 04/18 [facility] Outpatient Encounter [id number] 05/05 [facility] Outpatient Encounter [id number] 05/05 [facility] Outpatient Encounter [id number] Outpatient Encounter [id number] 06/12 [facility] Outpatient Encounter [id number] 07/03 [facility] Outpatient Encounter [id number] 07/10 [facility] Outpatient Encounter [id number] 07/18 [facility] Outpatient Encounter [id number] 07/31 [facility] Outpatient Encounter [id number] [facility] Out[facility] Encounter [id number]|2024-11-08 08:33:51|2024-11-08 08:33:51|PM.IMHP||||"H&P: HPI History of Present Illness Date/Time: 11/08/24 08:33 Chief Complaint: Screening colonoscopy Narrative: This is the patient's first colonoscopy. There are no GI symptoms and there is no family history of colorectal cancer. Review of Systems Review of Systems: All systems reviewed & are unremarkable except as noted in HPI and below PMFSH Social History Social History Smoking status: Never smoker Living arrangements: with family Spiritual care concerns: No Meds Home Medications and Allergies Home Medications Medication Instructions Recorded Confirmed Type allopurinol 300 mg tablet 300 mg PO DAILY 11/01/24 11/08/24 History alprazolam 0.5 mg tablet 0.5 mg PO TID PRN anxiety 11/01/24 11/01/24 History diclofenac sodium 1 % topical gel 4 g topical QID PRN pain 11/01/24 11/01/24 History ergocalciferol (vitamin D2) 1,250 1,250 mcg PO WEEKLY 11/01/24 11/08/24 History mcg (50,000 unit) capsule fenofibrate nanocrystallized 145 145 mg PO DAILY 11/01/24 11/08/24 History mg tablet gabapentin 100 mg capsule 100 mg PO HS 11/01/24 11/08/24 History levothyroxine 137 mcg tablet 137 mcg PO DAILY 11/01/24 11/08/24 History lisinopril 10 mg tablet 10 mg PO DAILY 11/01/24 11/08/24 History simvastatin 40 mg tablet 40 mg PO QPM 11/01/24 11/08/24 History sitagliptin 50 mg tablet 50 mg PO DAILY 11/01/24 11/08/24 History zolpidem 10 mg tablet 10 mg PO DAILY 11/01/24 11/08/24 History Allergies Allergy/AdvReac Type Severity Reaction Status Date / Time Molds and Smuts Allergy Intermediate SINUS Uncoded 11/08/24 06:15 ISSUES Vital Signs Vital Signs - 24 hr 11/08/24 06:08 11/08/24 08:27 Temperature 96.9 F L Pulse Rate 94 74 Respiratory Rate 16 24 H Blood Pressure 142/91 H 148/85 H Pulse Oximetry 97 97 Oxygen Delivery Room Air Room Air Exam Const: General: cooperative and healthy appearing Resp: Effort & Inspection: normal respiratory effort and able to speak in complete sentences Auscultation: clear to auscultation bilaterally Cardio: Rate: regular rate Rhythm: regular rhythm GI: Inspection: normal to inspection GI Palp: No No hepatosplenomegaly present Auscultation: normal bowel sounds Rectal Exam: deferred Skin: General skin exam: normal color Psych: Appearance: grossly normal Mental Status: mental status grossly normal Assessment and Plan Assessment and plan (1) Encounter for screening colonoscopy: Code(s): Z12.11 - Encounter for screening for malignant neoplasm of colon Status: Acute Assessment and Plan: The patient is deemed a good candidate for the procedure. Consent signed. Will proceed. "
--- OUTSIDE RECORDS SUMMARY | 2024-11-08 00:32 | XMS_ITS | Continuity of Care Document ---
Author Organization [facility] Address [address] [place] [address] Phone Care Team Providers Care Mold Yarn Supervisor Name Role Phone Mariann PT, DPT, Yesika Unavailable Unavaila ble Procedures Procedure Date Therapeutic Activities Neuromuscular Re-Ed Therapeutic Exercise Doc neg elder mal no plan PT Evaluation Moderate Complexity Therapeutic Activities Therapeutic Exercise Therapeutic Activities Neuromuscular Re-Ed Hot or Cold Pack Manual Therapy Neuromuscular Re-Ed Therapeutic Exercise Hot or Cold Pack Neuromuscular Re-Ed Therapeutic Exercise Hot or Cold Pack Doc neg elder mal no plan PT Evaluation Moderate Complexity Therapeutic Activities Therapeutic Exercise Advance Directives Directive Yes / No Effective Date File Name No Information Encounters Encounter Description Practice Location Reason(s) For Visit Diagnoses Date Provider Providers Copied on Encounter [facility], [address] [address], [place], [place], [id number], tel:[phone] [place] No Information Mariann Napoles. . Referring Provider: Eleonora Priest, [address] [place] [address], [address]. tel:[phone] [facility], [address], [id number], [place] tel:[phone] [place] No Information 5 Mariann Napoles. . Referring Provider: Eleonora Priest, [address] [place], [address]. tel:[phone] [facility] [address] [place] [address], [id number], [place] tel:[phone] [place] No Information 5 Jamal Fink. [address], [address], [place], [address], [place]. tel: [phone] Referring Provider: Alvin Avendano, [address], [place], [address]. tel:[phone] [facility] [address] [place] [address], [id number], [place] tel:[phone] [place] No Information 5 Kenisha Fan. . Referring Provider: Alvin Avendano, [address] [facility] [address], [place], [address]. tel:[phone], [id number], [place] tel:[phone] [place] No Information 5 Kenisha Alcalaon. . Referring Provider: Alvin Avendano, [address] [facility] [address], [place], [address]. tel:[phone] [address], [place], [id number], [place] tel:[phone] [place] No Information 5 Kenisha Alcalaon. . Referring Provider: Alvin Avendano, [address] [facility] [address], [place], [address]. tel:[phone] Family History Family Member Type Diagnosis Age At Onset No Information Payers Payer name Insurance type Covered constitution party ID Authorludmila contreras(s) [facility] [employer] [place] [id number] Social History Type Description Quantity Date Captured Comments Sex Male Smoking Status No Information Chief Complaint And Reason For Visit No Information Reason For Referral Reason For Referral No Information Plan Of Treatment Date Type Action Status Referral Ordered: Referrals: Specialist. Evaluate and Treat (related to Adjustment disorder with depressed mood) ordered Referral Ordered: Depression: Depression management program timeframe: 1 Day. (related to Depression) ordered Referral Ordered: Clinical Psychology (related to Depression) ordered Referral Ordered: Depression: Depression management program timeframe: 1 Day. (related to Depression) ordered Referral Ordered: Clinical Psychology (related to Depression) ordered Referral Ordered: Referrals: Specialist. Evaluate and Treat (related to Adjustment disorder with depressed mood) ordered Referral Ordered: Depression: Depression management program timeframe: 1 Day. (related to Depression) ordered Referral Ordered: Clinical Psychology (related to Depression) ordered Referral Ordered: Referrals: Specialist. Evaluate and Treat (related to Adjustment disorder with depressed mood) ordered History Of Present Illness Encounter Date Complaint History Of Prese nt Illness No Information Functional Status Date Functional Assessmen t No Information Instructions Date Instruction Additional Infor mation No Information Assessments Type Assessment Date No Information Patient Care Teams Name Effective Dates (start - stop) Status Members No Information
[2024-11-08 06:08] VITALS: BP 142/91; PULSE 94; RESP 16; TEMP 36.1; O2SAT 97; BMI 36.5
[2024-11-08] MEDS: LACTATED RINGERS 1,000 ML 150 ML IV CONT (06:30)
[2024-11-08 06:39] LABS: Glucose Point of Care 147 mg/dl (65-105)
--- NOTE | 2024-11-08 07:14 | P.PNAN_ITS ---
Anes - Initial Pre Proc Eval Procedure: Operation Date: 11/08/24 07:30 Proposed Procedures p Colonoscopy - Syed Delcid MD Date/Time: 11/08/24 07:14 Surgeon: Syed Delcid MD Pre Op Diagnosis: family hx of colon polyps Patient Data Age: 69 Gender: M Height: 1.8 m Weight: 118.7 kg Last Vital Signs Temp 36.1 C L 11/08/24 06:08 Pulse 94 11/08/24 06:08 Resp 16 11/08/24 06:08 BP 142/91 H 11/08/24 06:08 Pulse Ox 97 11/08/24 06:08 O2 Del Method Room Air 11/08/24 06:08 Allergies Allergy/AdvReac Type Severity Reaction Status Date / Time Molds and Smuts Allergy Intermediate SINUS Uncoded 11/08/24 06:15 ISSUES Home Medications Medication Instructions Recorded Confirmed Type allopurinol 300 mg tablet 300 mg PO DAILY 11/01/24 11/08/24 History alprazolam 0.5 mg tablet 0.5 mg PO TID PRN anxiety 11/01/24 11/01/24 History diclofenac sodium 1 % topical gel 4 g topical QID PRN pain 11/01/24 11/01/24 History ergocalciferol (vitamin D2) 1,250 1,250 mcg PO WEEKLY 11/01/24 11/08/24 History mcg (50,000 unit) capsule fenofibrate nanocrystallized 145 145 mg PO DAILY 11/01/24 11/08/24 History mg tablet gabapentin 100 mg capsule 100 mg PO HS 11/01/24 11/08/24 History levothyroxine 137 mcg tablet 137 mcg PO DAILY 11/01/24 11/08/24 History lisinopril 10 mg tablet 10 mg PO DAILY 11/01/24 11/08/24 History simvastatin 40 mg tablet 40 mg PO QPM 11/01/24 11/08/24 History sitagliptin 50 mg tablet 50 mg PO DAILY 11/01/24 11/08/24 History zolpidem 10 mg tablet 10 mg PO DAILY 11/01/24 11/08/24 History Laboratory Tests 11/08/24 06:29 POC Capillary Glucose 147 H mg/dl (65-105) Patient hx anesthesia problems: none Family hx anesthesia problems: none Results Review: All pre-operative results and documents have been reviewed as part of the pre- operative evaluation. [facility] Social History Social History Smoking status: Never smoker Living arrangements: with family Spiritual care concerns: No Anes - Eval Final PreProcedure Day of Procedure 11/08/24 07:14 Patient weight: obese Heart: regular rate and rhythm Lungs: clear to auscultation Airway: Mallampati scale class III and special considerations poor opening Neurological: alert and oriented Last oral intake: >/= 8 hours ASA classification: III Emergent: no Anesthetic plan: proceed Anesthesia type and monitoring: general GIVS and standard monitoring Results Review: All pre-operative results and documents have been reviewed as part of the pre- operative evaluation. Informed Consent: The patient's anesthetic plan and its attendant risks and benefits were discussed with the patient/family/POA. Questions were solicited and answers provided to the satisfaction of the patient/family/POA.
[2024-11-08] MEDS: EPINEPHrine INJ 1 MG/10 ML SYRINGE 0.7 MG XX (08:21)
[2024-11-08 08:27] VITALS: BP 148/85; PULSE 74; RESP 24; O2SAT 97
--- NOTE | 2024-11-08 08:33 | P.HP_ITS ---
H&P: HPI History of Present Illness Date/Time: 11/08/24 08:33 Chief Complaint: Screening colonoscopy Narrative: This is the patient's first colonoscopy. There are no GI symptoms and there is no family history of colorectal cancer. Review of Systems Review of Systems: All systems reviewed & are unremarkable except as noted in HPI and below PMFSH Social History Social History Smoking status: Never smoker Living arrangements: with family Spiritual care concerns: No Meds Home Medications and Allergies Home Medications Medication Instructions Recorded Confirmed Type allopurinol 300 mg tablet 300 mg PO DAILY 11/01/24 11/08/24 History alprazolam 0.5 mg tablet 0.5 mg PO TID PRN anxiety 11/01/24 11/01/24 History diclofenac sodium 1 % topical gel 4 g topical QID PRN pain 11/01/24 11/01/24 History ergocalciferol (vitamin D2) 1,250 1,250 mcg PO WEEKLY 11/01/24 11/08/24 History mcg (50,000 unit) capsule fenofibrate nanocrystallized 145 145 mg PO DAILY 11/01/24 11/08/24 History mg tablet gabapentin 100 mg capsule 100 mg PO HS 11/01/24 11/08/24 History levothyroxine 137 mcg tablet 137 mcg PO DAILY 11/01/24 11/08/24 History lisinopril 10 mg tablet 10 mg PO DAILY 11/01/24 11/08/24 History simvastatin 40 mg tablet 40 mg PO QPM 11/01/24 11/08/24 History sitagliptin 50 mg tablet 50 mg PO DAILY 11/01/24 11/08/24 History zolpidem 10 mg tablet 10 mg PO DAILY 11/01/24 11/08/24 History Allergies Allergy/AdvReac Type Severity Reaction Status Date / Time Molds and Smuts Allergy Intermediate SINUS Uncoded 11/08/24 06:15 ISSUES Vital Signs Vital Signs - 24 hr 11/08/24 06:08 11/08/24 08:27 Temperature 96.9 F L Pulse Rate 94 74 Respiratory Rate 16 24 H Blood Pressure 142/91 H 148/85 H Pulse Oximetry 97 97 Oxygen Delivery Room Air Room Air Exam Const: General: cooperative and healthy appearing Resp: Effort & Inspection: normal respiratory effort and able to speak in complete sentences Auscultation: clear to auscultation bilaterally Cardio: Rate: regular rate Rhythm: regular rhythm GI: Inspection: normal to inspection GI Palp: No No hepatosplenomegaly present Auscultation: normal bowel sounds Rectal Exam: deferred Skin: General skin exam: normal color Psych: Appearance: grossly normal Mental Status: mental status grossly normal Assessment and Plan Assessment and plan (1) Encounter for screening colonoscopy: Code(s): Z12.11 - Encounter for screening for malignant neoplasm of colon Status: Acute Assessment and Plan: The patient is deemed a good candidate for the procedure. Consent signed. Will proceed.
[2024-11-08 08:37] VITALS: BP 126/95; PULSE 63; RESP 22; O2SAT 100
[2024-11-08 08:47] VITALS: BP 161/81; PULSE 62; RESP 19; O2SAT 100
[2024-11-08 08:56] LABS: Glucose Point of Care 152 mg/dl (65-105)
== END 2024-11-08 09:19 | disposition home or self-care (01) ==
PROVIDERS: Referring Provider Internal Medicine Gastroenterology; Visit Provider Internal Medicine Gastroenterology
PROC: 0DJD8ZZ Inspection of Lower Intestinal Tract, Via Natural or Artificial Opening Endoscopic (ICD-10-PCS; CPT 45378; principal; 2024-11-08 07:30)
DX: Z12.11 Encounter for screening for malignant neoplasm of colon (principal); D12.0 Benign neoplasm of cecum; D12.4 Benign neoplasm of descending colon; K63.5 Polyp of colon; Z83.719 Family history of colon polyps, unspecified; E66.9 Obesity, unspecified; Z68.36 Body mass index [BMI] 36.0-36.9, adult; Z79.84 Long term (current) use of oral hypoglycemic drugs
CPT/HCPCS: 45390; 45385; 82948; 88305; J0171; J2003; J2405; J2704; J7120